=== PATIENT | female | born 1990 | race Caucasian/White ===

== ENCOUNTER 2019-06-10 08:14 | Emergency (ER) | payer SELFPAY ==
[2019-06-10 08:18] VITALS: BP 133/82; PULSE 94; RESP 16; TEMP 36.5; O2SAT 100; BMI 21.7
--- NOTE | 2019-06-10 08:26 | ED_ITS ---
HPI - Abdominal Pain General: Chief Complaint: Abdominal Pain Stated Complaint: Abd pain Time Seen by Provider: 06/10/19 08:18 Source: patient Mode of arrival: ambulatory Limitations: no limitations History of Present Illness: HPI narrative: Patient comes in today with complaints of midepigastric and right upper quadrant abdominal pain with nausea and diarrhea. Patient reports that she has had similar episodes over the past 6 months on and off. Patient denies any fever and no vomiting. Patient appears well. Patient appears in mild pain. MD elicited complaint: abdominal pain Severity: mild Exacerbating factors: eating Associated Symptoms: Reports diarrhea and nausea Review of Systems General: Reports: 10 or more systems reviewed and unremarkable except in HPI and below GI: Reports: abdominal pain, nausea and diarrhea PFSH ED PFSH: Statuses (acute, chronic, etc) shown below reflect problem list status as previously entered and may not be historically accurate Social History Smoking and tobacco status: current every day smoker Physical Exam Const: COMMON NORMALS: no apparent distress and oriented x3 GENERAL APPEARANCE: cooperative HENMT: COMMON NORMALS: normocephalic, external ears normal, EAC's normal, TM's normal bilaterally and external nose normal HEAD & SCALP: normal to inspection and normocephalic FACE & SINUS: normal facial exam NOSE: external nose normal GENERAL EAR: hearing not grossly impaired EXTERNAL EAR: Yes external ears normal EXTERNAL AUDITORY CANAL: EAC's normal TYMPANIC MEMBRANE: TM's normal bilaterally MOUTH: oral and palatal mucosa normal THROAT: posterior oropharynx normal Eye: COMMON NORMALS: PERRL and EOMs intact bilaterally PUPIL: Yes PERRL Neck/C-Spine: COMMON NORMALS: full ROM and no lymphadenopathy Lymph: LYMPHATIC: no lymphedema noted Chest: COMMONS NORMALS: inspection of chest normal and palpation of chest normal Resp: COMMON NORMALS: normal respiratory effort and clear to auscultation bilaterally AUSCULTATION: clear to auscultation bilaterally Cardio: COMMON NORMALS: regular rate and regular rhythm RATE: regular rate RHYTHM: regular rhythm GI: COMMON NORMALS: soft to palpation; negative for no hepatosplenomegaly PALPATION: Yes soft, Yes tender, No guarding, No rigid and No no hepatosplenomegaly : COMMON NORMALS: Yes no CVA tenderness BLADDER/KIDNEY EXAM: Yes no CVA tenderness Back/Pelvis: COMMON NORMALS: no CVA tenderness and thoracic and lumbar spine normal to inspection Extremity: COMMON NORMALS: normal to inspection GENERAL: No edema Neuro: COMMON NORMALS: oriented x3, moves all extremities and no focal motor deficits Psych: COMMON NORMALS: mental status grossly normal and cooperative Skin: COMMON NORMALS: no rashes or lesions noted GENERAL SKIN EXAM: no rashes or lesions noted Course Vital Signs: Vital signs: Vital Signs Temperature 97.7 F 06/10/19 08:18 Pulse Rate 94 06/10/19 08:18 Respiratory Rate 16 06/10/19 08:18 Blood Pressure 133/82 06/10/19 08:18 Pulse Oximetry 99 06/10/19 08:31 MDM - Abdominal Pain MDM Narrative: Medical decision making narrative: Patient comes in today with complaints of gastric discomfort on and off for the last 6 months. Patient reports last night pain got pretty severe and uncomfortable with some nausea. Patient exam notes tenderness to the epigastric and right upper quadrant. Abdomen is soft. No guarding or rebound tenderness is noted. No CVA tenderness. Skin is warm and dry color is pink. Respirations are even. Diff erential diagnosis includes gallbladder colic, pancreatitis, gastritis, gastro- esophageal reflux. Laboratory values noted no increase in liver enzymes. Review of the record did note some increase in liver enzymes in March. Ultrasound was ordered due to these elevated liver enzymes in March and it was noted patient had gallstones. Lipase was normal. CBC was normal. Urinalysis was normal. Feel the patient probably has gallbladder colic, recommend that she follow-up with surgeon for further evaluation and treatment with removal. Patient reports understanding agreed to plan and need for follow- up. Lab Data: Labs: Lab Results 06/10/19 06/10/19 06/10/19 Range/Units 08:28 08:28 08:28 WBC 8.1 (4.0-10.0) 10^3/ uL RBC 4.58 (4.1-5.3) 10^6/u L Hgb 12.9 (11.5-15.3) g/dL Hct 39.5 (37.0-47.0) % MCV 86.2 (81-99) fL MCH 28.2 (28.0-34.0) pg MCHC 32.7 (30.0-36.0) g/dL RDW 13.9 (12.1-15.1) % Plt Count 296 (130-400) 10^3/c mm MPV 10.3 (7.4-10.4) fL Neut % (Auto) 60.8 % Lymph % (Auto) 29.2 % Evangeline % (Auto) 6.5 % Eos % (Auto) 3.0 % Baso % (Auto) 0.4 % Neut # (Auto) 5.0 (1.8-7.7) 10^3/u L Lymph # (Auto) 2.4 (0.8-4.8) 10^3/u L Evangeline # (Auto) 0.5 (0.2-0.9) 10^3/u L Eos # (Auto) 0.2 (0.0-0.8) 10^3/u L Baso # (Auto) 0.0 (0.0-0.1) 10^3/u L Nucleated RBC % (a uto) 0 % Nucleated RBCs # 0.0 /100WBC Sodium 139 (136-145) mmol/L Potassium 4.0 (3.5-5.1) mmol/L Chloride 104 (98-107) mmol/L Carbon Dioxide 23 (22-29) mmol/L Anion Gap 16.0 (5-19) BUN 11 (6-20) mg/dL Creatinine 0.8 (0.5-0.9) mg/dL GFR Calculation 84.2 L (90-130) mL/min Glucose 101 (74-109) mg/dL Calcium 10.0 (8.5-10.5) mg/dL Total Bilirubin 0.4 (0.15-1.2) mg/dL AST 19 (0-32) U/L ALT 21 (0-33) U/L Alkaline Phosphata se 75 (35-105) IU/L Total Protein 8.1 (6.6-8.7) g/dL Albumin 5.1 (3.5-5.2) g/dL Globulin 3.0 (1.3-4.6) g/dL Lipase 42 (13-60) U/L HCG, Qual Negative (Negative) Urine Color (Yellow) Urine Appearance (CLEAR) Urine pH (5-7) Ur Specific Gravit y (1.005-1.030) Urine Protein (Negative) Urine Glucose (UA) (Normal) Urine Ketones (Negative) Urine Occult Blood (Negative) Urine Nitrate (Negative) Urine Bilirubin (NEGATIVE) Urine Urobilinogen (Negative) mg/dL Ur Leukocyte Sujata ase (Negative) Urine RBC (0-2) /hpf Urine WBC (0-5) /hpf Ur Squamous Epith Cells (0-5) Urine Bacteria (NONE) 06/10/19 Range/Units 08:39 WBC (4.0-10.0) 10^3/ uL RBC (4.1-5.3) 10^6/u L Hgb (11.5-15.3) g/dL Hct (37.0-47.0) % MCV (81-99) fL MCH (28.0-34.0) pg MCHC (30.0-36.0) g/dL RDW (12.1-15.1) % Plt Count (130-400) 10^3/c mm MPV (7.4-10.4) fL Neut % (Auto) % Lymph % (Auto) % Evangeline % (Auto) % Eos % (Auto) % Baso % (Auto) % Neut # (Auto) (1.8-7.7) 10^3/u L Lymph # (Auto) (0.8-4.8) 10^3/u L Evangeline # (Auto) (0.2-0.9) 10^3/u L Eos # (Auto) (0.0-0.8) 10^3/u L Baso # (Auto) (0.0-0.1) 10^3/u L Nucleated RBC % (a uto) % Nucleated RBCs # /100WBC Sodium (136-145) mmol/L Potassium (3.5-5.1) mmol/L Chloride (98-107) mmol/L Carbon Dioxide (22-29) mmol/L Anion Gap (5-19) BUN (6-20) mg/dL Creatinine (0.5-0.9) mg/dL GFR Calculation (90-130) mL/min Glucose (74-109) mg/dL Calcium (8.5-10.5) mg/dL Total Bilirubin (0.15-1.2) mg/dL AST (0-32) U/L ALT (0-33) U/L Alkaline Phosphata se (35-105) IU/L Total Protein (6.6-8.7) g/dL Albumin (3.5-5.2) g/dL Globulin (1.3-4.6) g/dL Lipase (13-60) U/L HCG, Qual (Negative) Urine Color Yellow (Yellow) Urine Appearance Clear (CLEAR) Urine pH 5.0 (5-7) Ur Specific Gravit y 1.025 (1.005-1.030) Urine Protein Neg (Negative) Urine Glucose (UA) Norm (Normal) Urine Ketones Negative (Negative) Urine Occult Blood Neg (Negative) Urine Nitrate Negative (Negative) Urine Bilirubin Neg (NEGATIVE) Urine Urobilinogen Norm (Negative) mg/dL Ur Leukocyte Sujata ase Negative (Negative) Urine RBC 5-10 H (0-2) /hpf Urine WBC 40-55 H (0-5) /hpf Ur Squamous Epith Cells 10-15 H (0-5) Urine Bacteria 1+ H (NONE) Discharge Plan Discharge Patient Disposition: Home, Self-Care Clinical Impression: Cholelithiasis Qualifiers: Cholelithiasis location: gallbladder Cholecystitis presence: without cholecystitis Biliary obstruction: without biliary obstruction Qualified Code(s): K80.20 - Calculus of gallbladder without cholecystitis without obstruction Condition: Stable Prescriptions: New ondansetron HCl 4 mg tablet 4 mg PO Q8H PRN (Reason: nausea and vomiting) Qty: 10 RF: 0 dicyclomine 20 mg tablet 20 mg PO TID PRN (Reason: gallbladder colic) Qty: 30 RF: 0 Discharge Orders: Discharge Order (Routine); Ordered 06/10/19 Ordered By: Yogesh Hancock Referrals: Brandie Galicia APN [Primary Care Provider] - Discharge Diet: Low Fat Discharge Activity: Resume usual activity Patient Instructions: Biliary Colic (ED) Activity Restrictions/Additional Instructions: Medications as directed Drink plenty of water Follow-up with primary care in one week Follow-up with surgeon for further evaluation and treatment Return to ER for high fever or uncontrolled pain Discharge Date/Time: 06/10/19 10:02 Coding Level of Care Code ED Pharmacy Tech Customer Service for Janki Pickens
[2019-06-10 08:31] VITALS: O2SAT 99
[2019-06-10 08:33] LABS: Basophils % 0.4 %; Eosinophils # 0.2 10^3/uL (0.0-0.8); Hematocrit 39.5 % (37.0-47.0); Hemoglobin 12.9 g/dL (11.5-15.3); Lymphocytes # 2.4 10^3/uL (0.8-4.8); Lymphocytes % 29.2 %; Mean Corpuscular HGB Conc 32.7 g/dL (30.0-36.0); Mean Corpuscular Hemoglobin 28.2 pg (28.0-34.0); Mean Corpuscular Volume 86.2 fL (81-99); Mean Platelet Volume 10.3 fL (7.4-10.4); Monocytes # 0.5 10^3/uL (0.2-0.9); Monocytes % 6.5 %; Neutrophils % 60.8 %; Nucleated Red Blood Cells % 0 %; Platelet Count 296 10^3/cmm (130-400); Red Blood Count 4.58 10^6/uL (4.1-5.3); Red Cell Distribution Width 13.9 % (12.1-15.1); White Blood Count 8.1 10^3/uL (4.0-10.0)
--- NOTE | 2019-06-10 08:41 | US_ITS ---
WS: [id number] RIGHT UPPER QUADRANT ULTRASOUND HISTORY: abd pain, elevated liver enzymes COMPARISON: None available. Liver: 14.0 cm in length. Normal size and echogenicity with no intrahepatic dilatation. No mass. Gallbladder: Well distended gallbladder with stones. No pericholecystic fluid or gallbladder wall thi ckening. Stone is in the gallbladder neck and does not move with positioning. CBD: 2.6 mm Pancreas: Normal size and echogenicity. Right kidney: 11.2 cm in length. Normal echogenicity with no mass or hydronephrosis. Aorta and IVC: Unremarkable. No ascites. US/US abdomen limited 07221 IMPRESSION: Cholelithiasis without acute cholecystitis.
[2019-06-10 08:49] LABS: Bilirubin Urine Neg (NEGATIVE); Blood Urine Neg (Negative); Glucose Urine UA Norm (Normal); Ketones Urine Negative (Negative); Leukocyte Esterase Urine Negative (Negative); Nitrate Urine Negative (Negative); Protein Urine Neg (Negative); Specific Gravity, Urine 1.025 (1.005-1.030); Urine Appearance Clear (CLEAR); Urine Color Yellow (Yellow); Urobilinogen Urine Norm (Negative)
[2019-06-10 08:49] LABS: HCG, Serum Qual Negative (Negative)
[2019-06-10 08:57] LABS: Alanine Aminotransferase 21 U/L (0-33); Albumin Level 5.1 g/dL (3.5-5.2); Alkaline Phosphatase 75 IU/L (35-105); Aspartate Amino Transferase 19 U/L (0-32); Blood Urea Nitrogen 11 mg/dL (6-20); Carbon Dioxide 23 mmol/L (22-29); Chloride 104 mmol/L (98-107); Glomerular Filtration Rate 84.2 mL/min (90-130); Glucose 101 mg/dL (74-109); Lipase 42 U/L (13-60); Sodium 139 mmol/L (136-145); Total Bilirubin 0.4 mg/dL (0.15-1.2); Total Protein 8.1 g/dL (6.6-8.7)
[2019-06-10 09:19] LABS: Add Urine Culture? Yes; Bacteria Urine 1+; WBC Urine 40-55 /hpf (0-5)
[2019-06-10 10:01] VITALS: BP 132/85; PULSE 89; RESP 16; O2SAT 99
--- NOTE | 2019-06-10 14:53 | DCPLANNER ---
manager of training had message to schedule a follow up appointment for patient with general surgery. manager of training called [facility], spoke with Yelitza, a follow up appointment is scheduled for Thursday, June 13, 2019 at 11:[address] Andrade. manager of training called patient and informed patient of the scheduled appointment, patient stated that she does not have insurance, case filler will mail patient both of the financial adviser applications to fill out and turn in.
--- NOTE | 2019-07-04 14:34 | DCPLANNER ---
Patient did attend appointment scheduled for 06.13.[address] Andrade at [facility].
== END 2019-06-10 10:02 | disposition home or self-care (01) ==
PROVIDERS: Emergency Provider Nurse Practitioner Family; Family Provider Nurse Practitioner Family; PCP Nurse Practitioner Family
DX: K80.20 Calculus of gallbladder without cholecystitis without obstruction (principal); F17.210 Nicotine dependence, cigarettes, uncomplicated
CPT/HCPCS: 36415; 76705; 80053; 81001; 83690; 84703; 85025; 87077; 87086; 87186; 99282

== ENCOUNTER 2019-06-16 08:14 | Day surgery (SDC) | payer SELFPAY ==
[2019-06-13 17:22] VITALS: BMI 21.7
[2019-06-16] VITALS (13 sets, daily range): BP systolic 98–129; BP diastolic 61–80; PULSE 54–112; RESP 15–24; TEMP 36.2–37.2; O2SAT 94–100
[2019-06-16 09:05] LABS: OR HCG Qualitative Urine Negative (Negative)
[2019-06-16] MEDS: sodium chloride 0.9% 1,000 ML 30 ML IV (09:08)
--- NOTE | 2019-06-16 09:34 | ANES.PREANE2 ---
Pre-Anesthetic Assessment Pre-Anesthetic Assessment: Height/Weight: Height 1.68 m Weight 61.235 kg Temp Pulse Resp BP Pulse Ox 98 F 71 18 121/64 100 06/16/19 08:40 06/16/19 08:40 06/16/19 08:40 06/16/19 08:40 06/16/19 08:40 Preop Diagnosis: Symptomatic cholelithiasis Proposed Procedure: Operation Date: 06/16/19 09:50 Proposed Procedures p [place] [address] K80.20(Not Applicable) - Ronny Andrade MD Last intake: Intake Last Liquid Date 06/15/19 Last Liquid Time 22:00 Last Solid Date 06/15/19 Last Solid Time 19:30 Social: Social History: Tobacco Packs per day: 1 Pack years: 14 Exam: Pre-Anes Outpt Exam: alert and oriented x 3 Airway: Submandibular: WNL Cervical ROM: WNL MP: 1 GI: Comments: cholelithiasis Anesthetic Plan: ASA status: II Anesthesia: General Meds/Allergies Current Medications: Current Medications Generic Name Dose Route Start Last Admin Trade Name Freq PRN Reason Stop Dose Admin Sodium Chloride 1,000 mls @ 30 ml s/hr 06/16/19 08:30 06/16/19 09:08 Sodium Chloride 0.9% IV 06/17/19 08:29 30 mls/hr .Q24H SURESH Administration PFSH Anesthesia PFSH: Social History Smoking and tobacco status: current every day smoker Alcohol intake: never Household members: spouse Marital status: Current occupational status: unemployed History of recent travel: No Data Anesthesia Other Labs: Laboratory Results - last 48 hr 06/16/19 08:58 Urine HCG, Qual Negative Cardiac Studies: No Data to Display
--- NOTE | 2019-06-16 11:33 | PM.HPUD ---
H&P update H&P Update: DATE OF SURGERY/PROCEDURE: 06/16/19 DATE H&P PERFORMED: 06/13/19 H&P UPDATE INFORMATION: H&P completed within last 30 days and No changes to prior documentation PLANNED PROCEDURE: Operation Date: 06/16/19 09:50 Proposed Procedures p Laparoscopic Cholecystectomy [place] Open 12902 K80.20(Not Applicable) - Ronny Andrade MD Full H&P Medications/Allergies: Current Medications: Current Medications Generic Name Dose Route Start Last Admin Trade Name Freq PRN Reason Stop Dose Admin Sodium Chloride 1,000 mls @ 30 ml s/hr 06/16/19 08:30 06/16/19 09:08 Sodium Chloride 0.9% IV 06/17/19 08:29 30 mls/hr .Q24H SURESH Administration Perinent History: Family History: Family History (Updated 06/13/19 @ 09:30 by Lee Ann Jones LPN) Unknown Cancer cervical cancer Other Diabetes Denies family history of Anesthesia complication Bleeding disorder Social History: Social History Smoking and tobacco status: current every day smoker Alcohol intake: never Household members: spouse Marital status: Current occupational status: unemployed History of recent travel: No
[2019-06-16] MEDS: meperidine 50 mg/mL INJ 12.5 MG IVP ×2 (12:37→12:43)
--- NOTE | 2019-06-16 12:41 | SUR.PHASEI ---
1235 PATIENT TO PACU VIA GURNEY. PATIENT NOTED TO BE SHIVERING. RR EVEN AND UNLABORED. 4 INCISIONS NOTED TO ABDOMEN, CDI. PATIENT RESPONDS TO VERBAL STIMULI. PLACED ON SIMPLE MASK AT 8L, SPO2 100%.
[2019-06-16] MEDS: fentaNYL 50 mcg/mL INJ 2mL IVP (12:46)
--- NOTE | 2019-06-16 13:08 | SUR.PHASEI ---
1304 patient to ops via gurney from pacu. no distress. pwd. 4 incisions to abdomen, cdi.
[2019-06-16] MEDS: HYDROcodone-acetaminophen 5-325 mg Tablet 1 TAB PO (14:29)
--- NOTE | 2019-06-16 16:43 | P.OP_ITS ---
Operative Report Date of procedure: June 16, 2019 Pre-op Diagnosis: Symptomatic cholelithiasis Post-op diagnosis: same Procedure Done: Laparoscopic cholecystectomy Pathology: Gallbladder Surgeon: Ronny Andrade Anesthesia: General Estimated blood loss (mL): 10 Condition: stable Disposition: PACU Procedure: The patient was taken to the operating room and was intubated under general anesthesia. After the antibiotic had been administered, the abdomen was prepped and draped in a sterile manner. Using a #15 blade, a 1 centimeter infraumbilical curvilinear incision was made and using an open Nory technique the peritoneal cavity was entered. A 10 millimeter port was placed and 15 millimeters of pneumoperitoneum was created. A 10 millimeter, 30 degrees scope was then introduced. Three 5 millimeter ports were placed in the epigastric, midclavicular and the anterior axillary line two fingerbreadths below the costal margin on the right side under the direct visualization. Ratcheted forceps were introduced into the lateral most port and was used to retract the fundus of the gallbladder cephalad and using forceps the infundibulum of the gallbladder was retracted laterally. Using L-hook cautery the peritoneum overlying the Calot's triangle was opened medially and laterally until the cystic duct and the cystic artery were skeletonized. Dissection was carried along the body of the gallbladder and after ensuring critical view of safety, 4 clips applied on the cystic duct and 3 clips applied on the cystic artery and cut leaving, 3 clips on the remaining portion of the duct and 2 clips on the remaining portion of the artery. The rest of the gallbladder was dissected off the liver using L-hook cautery. There was no bleeding or bile leaking noted from the gallbladder fossa and the clips appeared to be in place. An EndoCatch bag was introduced to remove the gallbladder. All the ports were removed under direct visualization and there was no bleeding noted from the port sites. The fascia of the umb ilicus was closed using [id number] 0 Vicryl sutures and the subcutaneous tissue was approximated using 3-0 Vicryl sutures. The skin at all four ports were closed using 4-0 Monocryl and Dermabond. A total of 10 millimeters of 0.5% Marcaine was infiltrated around the port sites. The patient was stable throughout the procedure.
== END 2019-06-16 14:40 | disposition home or self-care (01) ==
PROVIDERS: Anesthesiology; PCP Nurse Practitioner; Visit Provider Surgery
PROC: 0FT44ZZ Resection of Gallbladder, Percutaneous Endoscopic Approach (ICD-10-PCS; CPT 47562; principal; 2019-06-16 09:50)
DX: K80.10 Calculus of gallbladder with chronic cholecystitis without obstruction (principal); F17.210 Nicotine dependence, cigarettes, uncomplicated
CPT/HCPCS: 47562; 12345; 81025; 84703; 88304; 96365; J0690; J1100; J2001; J2175; J2250; J2405; J2704; J3010; J3490; J7030

== ENCOUNTER → 2020-05-28 12:01 | Outpatient (BNVA) | payer SELFPAY | PROVIDERS: PCP Family Medicine; Visit Provider Surgery | DX: R19.5 Other fecal abnormalities (principal) | CPT/HCPCS: 87635 ==

== ENCOUNTER → 2020-06-07 15:18 | Outpatient (BNVA) | payer SELFPAY | PROVIDERS: PCP Family Medicine; Visit Provider Surgery | DX: Z01.812 Encounter for preprocedural laboratory examination (principal); R19.5 Other fecal abnormalities | CPT/HCPCS: 87635 ==

== ENCOUNTER 2020-06-10 08:21 | Day surgery (SDC) | payer SELFPAY ==
[2020-06-08 13:49] VITALS: BMI 21.9
[2020-06-10 09:03] VITALS: BP 112/74; PULSE 67; RESP 16; TEMP 36.6; O2SAT 97
[2020-06-10] MEDS: sodium chloride 0.9% 1,000 ML 30 ML IV (09:19)
--- NOTE | 2020-06-10 09:37 | ANES.PREANE2 ---
Pre-Anesthetic Assessment Pre-Anesthetic Assessment: Height/Weight: Height 1.68 m Weight 61.689 kg Temp Pulse Resp BP Pulse Ox 97.9 F 67 16 112/74 97 06/10/20 09:03 06/10/20 09:03 06/10/20 09:03 06/10/20 09:03 06/10/20 09:03 Preop Diagnosis: diagnostic Proposed Procedure: Operation Date: 06/10/20 09:30 Proposed Procedures p Colonoscopy 53001 r19.5(Not Applicable) - Ronny Andrade MD Was Beta Gonzalo taken within 24 hours: N/A Last intake: Intake Last Liquid Date 06/09/20 Last Liquid Time 22:00 Last Solid Date 06/08/20 Last Solid Time 22:00 Social: Social History: Tobacco and No alcohol Exam: Pre-Anes Outpt Exam: alert, oriented x 3 and regular rate & rhythm Airway: Submandibular: WNL Cervical ROM: WNL MP: 2 Dentition: Chipped Additional comments: Poor dentition Pulmonary: Pulmonary: COPD GI: GI: GERD Anesthetic Plan: ASA status: 2 Anesthesia: MAC Risk of > 500 ml blood loss (7ml/kg in children): No Meds/Allergies Current Medications: Current Medications Generic Name Dose Route Start Last Admin Trade Name Freq PRN Reason Stop Dose Admin Sodium Chloride 1,000 mls @ 30 ml s/hr 06/10/20 09:00 06/10/20 09:19 Sodium Chloride 0.9% IV 06/11/20 08:59 30 mls/hr .Q24H SURESH Administration PFSH Anesthesia PFSH: Surgical History (Updated 05/22/20 @ 09:36 by Ronny Andrade MD) History of tubal ligation Hx of cholecystectomy Family History Unknown Cancer cervical cancer Other Diabetes Denies family history of Anesthesia complication Bleeding disorder Social History Smoking and tobacco status: current every day smoker Alcohol intake: never Household members: spouse Marital status: Current occupational status: unemployed History of recent travel: No Female Reproductive History: Date of last menstrual period: 05/28/20 Data Anesthesia Cardiac Studies: No Data to Display
--- NOTE | 2020-06-10 09:43 | W.PM.OPSUD ---
Surgery/Procedure H&P Update DATE OF PROCEDURE: June 10, 2020 DATE H&P PERFORMED: 05/21/20 H&P UPDATE INFORMATION: I have reviewed H&P completed within last 30 days, I have examined patient prior to procedure and No changes to prior documentation PREOP DIAGNOSIS: diagnostic PLANNED PROCEDURE: Operation Date: 06/10/20 09:30 Proposed Procedures p Colonoscopy 41550 r19.5(Not Applicable) - Ronny Andrade MD
[2020-06-10 10:21] VITALS: BP 87/42; PULSE 65; RESP 16; TEMP 36.4; O2SAT 100
[2020-06-10 10:36] VITALS: BP 102/51; PULSE 72; RESP 18; TEMP 36.5; O2SAT 99
--- NOTE | 2020-06-10 12:08 | ANE.PACU2 ---
Inpatient post-anesthesia follow up: Airway intact: Yes Vital signs: Temperature 97.7 F Pulse Rate 72 Respiratory Rate 18 Blood Pressure 102/51 Pulse Oximetry 99 Oxygen Delivery Me thod Room Air Oxygen Flow Rate 2 Fraction of Inspir ed Oxygen Hydration adequate: Yes Nausea and vomiting: No Pain level: 1 Mental status: Baseline
[2020-06-11 06:10] LABS: OR HCG Qualitative Urine Negative (Negative)
== END 2020-06-10 11:20 | disposition home or self-care (01) ==
PROVIDERS: Anesthesiology; PCP Family Medicine; Visit Provider Surgery
PROC: 0DJD8ZZ Inspection of Lower Intestinal Tract, Via Natural or Artificial Opening Endoscopic (ICD-10-PCS; CPT 45378; principal; 2020-06-10 09:30)
DX: R19.5 Other fecal abnormalities (principal); F17.210 Nicotine dependence, cigarettes, uncomplicated; Z80.0 Family history of malignant neoplasm of digestive organs; J44.9 Chronic obstructive pulmonary disease, unspecified; K21.9 Gastro-esophageal reflux disease without esophagitis
CPT/HCPCS: 12345; 45378; 84703; J2704; J7030

== ENCOUNTER 2020-10-14 20:58 | Emergency (ER) | payer SELFPAY ==
[2020-10-14 21:34] VITALS: BP 131/84; PULSE 97; RESP 15; TEMP 36.8; O2SAT 98; BMI 21.7
--- NOTE | 2020-10-14 22:07 | CTR_ITS ---
PROCEDURE INFORMATION: Exam: CT Cervical Spine Without Contrast Exam date and time: 10/14/2020 10:33 PM Age: 30 years old Clinical indication: Injury or trauma; Fall; Blunt trauma; Patient HX: Sustained whiplash injury jumping on trampoline. TECHNIQUE: Imaging protocol: Computed tomography images of the cervical spine without contrast. Radiation optimization: All CT scans at this facility use at least one of these dose optimization techniques: automated exposure control; mA and/or kV adjustment per patient size (includes targeted exams where dose is matched to clinical indication); or iterative reconstruction. COMPARISON: No relevant prior studies available. RADIATION DOSE METRICS: Total DLP (mGy-cm): 314.36 FINDINGS: Bones/joints: There are normal vertebral body heights. There is normal vertebral body alignment. The dens is intact. The lateral masses of C1 are symmetric. No fracture. Discs/Spinal canal/Neural foramina: Craniocervical articulation is normal. Atlantodental interval and prevertebral soft tissues are normal. Disc spaces are symmetric and maintained. Lungs: Lung apices are normal. Soft tissues: Unremarkable. CT/CT cervical spin wo con* [id number] IMPRESSION: No fracture. Radiation Dose CTDIVOL = (mGy): DLP = 314.36 (mGy-cm)
--- NOTE | 2020-10-14 22:48 | W.ED.NECK ---
HPI - Neck Pain/Injury General: Chief Complaint: Neck Pain/Injury Stated Complaint: Neck pain/injury, knot on back of neck Time Seen by Provider: 10/14/20 22:47 History of Present Illness: HPI Narrative: Patient is a 30-year-old female comes to the ED with neck pain. Patient says she was jumping on the trampoline with her kids and trying to do a front flip and she landed down on her trampoline on her upper back/neck. Patient says she felt like burning pain and a stretching feeling in her neck. Patient says she mainly felt pain in her neck and the pain shoots down into her shoulder blades. Denies any loss of consciousness, neurological symptoms. She just has soreness and pain in her neck and if she abducts her arms to shoulder like she feels a pull on her neck and it causes pain. Associated symptoms: Denies headache(s) or nausea Review of Systems Const: Denies: fever(s), chills or fatigue Eyes: Denies: change in vision or eye discomfort ENMT: Denies: throat pain, odynophagia, nasal discharge or nasal congestion Card: Denies: chest pain, palpitations, edema, swelling of feet/ankles, dyspnea on exertion or orthopnea Resp: Denies: dyspnea, productive cough or non-productive cough GI: Denies: abdominal pain, nausea, vomiting, diarrhea, constipation or hematochezia : Denies: flank pain, dysuria or hematuria Musc: Reports: neck pain; Denies: back pain or extremity swelling Skin/Breast: Denies: rash or new lesions Neuro: Denies: headache(s), numbness in extremities or weakness in extremities PFS ED PFSH: Surgical History History of tubal ligation Hx of cholecystectomy Status post colonoscopy (06/10/20) repeat in 5 Family History Unknown Cancer cervical cancer Other Diabetes Denies family history of Anesthesia complication Bleeding disorder Social History Smoking and tobacco status: current every day smoker Alcohol intake: never Household members: spouse Marital status: Current occupational status: unemployed History of recent travel: No Female Reproductive History: Date of last menstrual period: 05/28/20 Physical Exam Const: COMMON NORMALS: no acute distress, patient oriented x3 and alert GENERAL APPEARANCE: cooperative and comfortable HENMT: COMMON NORMALS: normocephalic HEAD & SCALP: normocephalic MOUTH: Normal oral and palatal mucosa present THROAT: posterior oropharynx normal and uvula midline Neck/C-Spine: COMMON NORMALS: supple GENERAL: Yes normal visual inspection CERVICAL SPINE: Yes pain with cervical ROM, Yes Cervical spine tenderness C5, C6 and C7, Yes Paracervical muscle tenderness bilateral and Yes collar present Resp: COMMON NORMALS: normal respiratory effort, No retractions, No use of accessory muscles and clear to auscultation bilaterally AUSCULTATION: clear to auscultation bilaterally Cardio: COMMON NORMALS: regular rate, regular rhythm, S1 normal heart sound present, S2 normal heart sound present, No gallops present (Cardio), No clicks present (Cardio), No murmurs present (Cardio) and Peripheral pulses 2+ throughout RATE: regular rate RHYTHM: regular rhythm HEART SOUNDS: S1 normal heart sound present and S2 normal heart sound present PERIPHERAL PULSES: Peripheral pulses 2+ throughout GI: COMMON NORMALS: Normal to inspection, nondistended, normoactive bowel sounds present, Soft to palpation, non-tender and no masses PALPATION: Yes Soft to palpation : COMMON NORMALS: Yes no CVA tenderness BLADDER/KIDNEY EXAM: Yes no CVA tenderness Back/Pelvis: COMMON NORMALS: no CVA tenderness Extremity: COMMON NORMALS: normal to inspection Neuro: COMMON NORMALS: patient oriented x3 and moves all extremities SENSORIUM/ORIENTATION: Yes alert Skin: GENERAL SKIN EXAM: dry skin Course Vital Signs: Vital signs: Vital Signs Temperature 98.2 F 10/14/20 21:34 Pulse Rate 97 10/14/20 21:34 Respiratory Rate 15 10/14/20 21:34 Blood Pressure 131/84 10/14/20 21:34 Pulse Oximetry 98 10/14/20 21:34 MDM - Neck Pain/Injury MDM Narrative: Medical decision making narrative: Patient is a 30-year-old female comes to the ED with neck pain after an injury. Patient was wearing a c-collar upon exam and had some tenderness over the C6 and C7 area of C-spine. She also had some paracervical muscle tenderness bilaterally. Neurovascular intact. CT of cervical spine showed no acute fractures or findings. Patient was given a dose of Toradol and Norflex while here in the ED. She was diagnosed with cervical muscle strain and discharged home with a prescription for ibuprofen 800 mg tablets and cyclobenzaprine. Rest, limit lifting and apply cold pack on neck to help with symptoms. She was told to follow-up with her PCP in 7 to 10 days for reevaluation. Return to ED precautions given. Patient understood agree with plan. Imaging Data^: Other CT: Attestation: I personally reviewed and interpreted this imaging study as follows: Radiologist's impression: [employer] [place] [address] CT Scan Report Signed Patient: Anna Rodriguez Unit #: [id number] : 1990 Age/Sex: 30 / F ADM Date: 10/14/20 Loc: ER Room/Bed: Attending Dr: Ordering Provider/Ordering MD: Anita Fields MD Date of Service: 10/14/20 Procedure(s): CT cervical spin wo con* [id number] Accession Number(s): [id number] Report Number: [id number] PROCEDURE INFORMATION: Exam: CT Cervical Spine Without Contrast Exam date and time: 10/14/2020 10:33 PM Age: 30 years old Clinical indication: Injury or trauma; Fall; Blunt trauma; Patient HX: Sustained whiplash injury jumping on trampoline. TECHNIQUE: Imaging protocol: Computed tomography images of the cervical spine without contrast. Radiation optimization: All CT scans at this facility use at least one of these dose optimization techniques: automated exposure control; mA and/or kV adjustment per patient size (includes targeted exams where dose is matched to clinical indication); or iterative reconstruction. COMPARISON: No relevant prior studies available. RADIATION DOSE METRICS: Total DLP (mGy-cm): 314.36 FINDINGS: Bones/joints: There are normal vertebral body heights. There is normal vertebral body alignment. The dens is intact. The lateral masses of C1 are symmetric. No fracture. Discs/Spinal canal/Neural foramina: Craniocervical articulation is normal. Atlantodental interval and prevertebral soft tissues are normal. Disc spaces are symmetric and maintained. Lungs: Lung apices are normal. Soft tissues: Unremarkable. CT/CT cervical spin wo con* [id number] IMPRESSION: No fracture. Radiation Dose CTDIVOL = (mGy): DLP = 314.36 (mGy-cm) Dictated By: Raymond Read Signed By: Raymond Read Signed Date/Time: 10/14/202318 DD/ 17 Discharge Plan Discharge Patient Disposition: Home Clinical Impression: Cervical muscle strain Qualifiers: Encounter type: initial encounter Qualified Code(s): S16.1XXA - Strain of muscle, fascia and tendon at neck level, initial encounter Condition: Stable Prescriptions: New ibuprofen 800 mg tablet 800 mg PO Q8H PRN (Reason: pain) Qty: 20 RF: 0 cyclobenzaprine 10 mg tablet 10 mg PO BID PRN (Reason: muscle spasm) Qty: 20 RF: 0 No Action ferrous sulfate [FeroSul] 325 mg (65 mg iron) tablet 325 mg PO QDAY RF: 0 hydroxyzine HCl 25 mg tablet 25 mg PO TID PRN (Reason: Anxiety) RF: 0 lactulose 10 gram/15 mL (15 mL) solution 10 g PO BID 7 Days Qty: 210 RF: 0 pantoprazole [Protonix] 40 mg Tablet,Delayed Release (Dr/Ec) 40 mg PO DAILY RF: 0 buspirone 7.5 mg Tablet 7.5 mg PO BID RF: 0 amoxicillin 500 mg Tablet 500 mg PO TID RF: 0 Discharge Orders: Discharge ED (Routine); Ordered 10/14/20 Ordered By: Maciel Orosco Referrals: Mike Meek MD [Primary Care Provider] - Discharge Diet: Regular Discharge Activity: Limit activity as instructed Patient Instructions: Cervical Sprain (ED), Cervical Strain Activity Restrictions/Additional Instructions: Follow-up with medical provider as directed in 7 to 10 days for reevaluation. Limit lifting and apply cold pack on neck to help with symptoms. Take medications as prescribed. Return to the ER or your medical provider if condition worsens. Please read and understand discharge instructions. Thank you for choosing [facility] for your healthcare needs today. Please realize this is an emergency room and that we are providing you with a medical screening exam and this may not be complete and all inclusive of all the testing and or work up that you may need to determine your ailment or severity of your illness. It is very important that you follow up as instructed or that you return to the Emergency Department should you have concerns or if your condition changes or worsens in any way. Stand Alone Forms: Work/School Release Coding Level of Care Code ED Employment Consultant for [employer] Fwd Exam Comprehensive
[2020-10-14] MEDS: ketorolac 60 mg/2 mL INJ IM (23:31)
[2020-10-14] MEDS: orphenadrine 30 mg/mL Inj 2 mL 60 MG IM (23:31)
== END 2020-10-14 23:46 | disposition home or self-care (01) ==
PROVIDERS: Emergency Provider Physician Assistant; PCP Family Medicine
DX: S16.1XXA Strain of muscle, fascia and tendon at neck level, initial encounter (principal); F17.210 Nicotine dependence, cigarettes, uncomplicated; X50.9XXA Other and unspecified overexertion or strenuous movements or postures, initial encounter; Y93.44 Activity, trampolining
CPT/HCPCS: 72125; 96372; 99283; J1885; J2360

== ENCOUNTER 2021-09-17 17:51 | Emergency (ER) | payer SELFPAY ==
[2021-09-17 17:52] VITALS: BP 152/80; PULSE 98; RESP 14; TEMP 36.7; O2SAT 98
--- NOTE | 2021-09-17 18:01 | W.ED.DENTAL ---
HPI - Dental/Oral General: Chief complaint: Dental/Oral Stated complaint: Swelling in face Time Seen by Provider: 09/17/21 17:59 History of Present Illness: 31-year-old female comes in today for complaints of abscess to the right upper premolar. Patient reports recurrent infection to the tooth. Patient is waiting to get into the dentist for definitive care. Patient is needing antibiotic. Associated symptoms: Denies fever(s) Review of Systems General: Reports: 10 or more systems reviewed and unremarkable except in HPI and below Const: Denies: fever(s) ENMT: Reports: dental pain Card: Denies: chest pain Resp: Denies: dyspnea GI: Denies: nausea or vomiting Musc: Denies: neck pain PFSH ED PFSH: Surgical History History of tubal ligation Hx of cholecystectomy Status post colonoscopy (06/10/20) repeat in 5 Family History Unknown Cancer cervical cancer Other Diabetes Denies family history of Anesthesia complication Bleeding disorder Social History Smoking and tobacco status: current every day smoker Alcohol intake: never Household members: spouse Marital status: Current occupational status: unemployed History of recent travel: No Female Reproductive History: Date of last menstrual period: 09/05/21 Physical Exam Const: COMMON NORMALS: alert HENMT: MOUTH: Abnormal oral and palatal mucosa present (Pustule noted above the first premolar on the right upper jaw) TEETH & GINGIVA: Yes poor dentition Eye: GENERAL EYE: appearance normal, both eyes and all related structures Neck/C-Spine: COMMON NORMALS: full ROM Resp: COMMON NORMALS: normal respiratory effort and clear to auscultation bilaterally AUSCULTATION: clear to auscultation bilaterally Cardio: COMMON NORMALS: regular rate RATE: regular rate GI: COMMON NORMALS: non-tender : COMMON NORMALS: Yes no CVA tenderness BLADDER/KIDNEY EXAM: Yes no CVA tenderness Back/Pelvis: COMMON NORMALS: no CVA tenderness Extremity: COMMON NORMALS: full ROM Neuro: SENSORIUM/ORIENTATION: Yes alert Skin: COMMON NORMALS: no rashes or lesions noted GENERAL SKIN EXAM: no rashes or lesions noted Course Vital Signs: Vital signs: Vital Signs Temperature 98.0 F 05/07/22 17:52 Pulse Rate 98 09/17/21 17:52 Respiratory Rate 14 09/17/21 17:52 Blood Pressure 152/80 09/17/21 17:52 Pulse Oximetry 98 09/17/21 17:52 [facility] - Dental/Oral Medical Decision Making Patient comes in today with complaints of dental pain to the right upper premolar. There is a noted pustule just above the tooth. Tooth is broken off at the gumline. Patient has poor dentition. Vital signs are normal except for some elevation of blood pressure. Differential diagnosis includes but not limited to dental abscess, dental caries, dental pain. No signs of serious illnesses noted. Patient will be started on Augmentin 1 tablet twice a day for 7 days with 1 refill. Patient was recommended to follow-up with dentist for definitive care. Discharge Plan Discharge Patient Disposition: Home Clinical Impression: Dental abscess Condition: Stable Prescriptions: New amoxicillin-pot clavulanate 875-125 mg tablet 1 tab PO BID Qty: 14 1RF Discontinued amoxicillin 500 mg Tablet 500 mg PO TID 0RF No Action ferrous sulfate [FeroSul] 325 mg (65 mg iron) tablet 325 mg PO QDAY 0RF hydroxyzine HCl 25 mg tablet 25 mg PO TID PRN (Reason: Anxiety) 0RF lactulose 10 gram/15 mL (15 mL) solution 10 g PO BID 7 Days Qty: 210 0RF pantoprazole [Protonix] 40 mg Tablet,Delayed Release (Dr/Ec) 40 mg PO DAILY 0RF buspirone 7.5 mg Tablet 7.5 mg PO BID 0RF ibuprofen 800 mg tablet 800 mg PO Q8H PRN (Reason: pain) Qty: 20 0RF cyclobenzaprine 10 mg tablet 10 mg PO BID PRN (Reason: muscle spasm) Qty: 20 0RF Discharge Orders: Discharge ED (Routine); Ordered 09/17/21 Ordered By: Yogesh Hancock Referrals: Mike Meek MD [Primary Care Provider] - Discharge Diet: Usual diet Discharge Activity: Increase activity as tolerated Patient Instructions: Dental Abscess (ED) Activity Restrictions/Additional Instructions: Home and rest. Acetaminophen and ibuprofen for pain. Take antibiotic 1 tablet twice a day for 7 days. Follow-up with dentist for definitive care. Return to ER for new concerns. 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
[2021-09-17] MEDS: amoxicillin-clav 875-125 mg Tablet 1 TAB PO (18:25)
== END 2021-09-17 18:24 | disposition home or self-care (01) ==
PROVIDERS: Emergency Provider Nurse Practitioner Family; PCP Family Medicine
DX: K04.7 Periapical abscess without sinus (principal); F17.200 Nicotine dependence, unspecified, uncomplicated
CPT/HCPCS: 99283

== ENCOUNTER 2022-06-12 04:53 | Emergency (ER) | payer SELFPAY ==
[2022-06-12 05:01] VITALS: BP 149/89; PULSE 66; RESP 26; TEMP 36.6; O2SAT 100; BMI 21.7
--- NOTE | 2022-06-12 05:06 | W.ED.ABDPA2 ---
HPI - Abdominal Pain General: Chief Complaint: Abdominal Pain Stated Complaint: ABD Pain Time Seen by Provider: 06/12/22 05:02 Source: patient History of Present Illness: 82-year-old female with sudden onset of left lower quadrant pain that is quite severe this started around 3 AM. She is vomited a couple times. No diarrhea. No fever. No history of pain like this in the past. She has had ovarian cyst in the past, but says this is a different pain. MD elicited complaint: abdominal pain Pertinent past history: none Onset (ago): hour(s) (2) Pain Consistency: constant Location: LLQ Severity: severe Quality: stabbing Radiation: L flank Exacerbating factors: vomiting and movement Relieving factors: nothing Associated Symptoms: Reports nausea and vomiting; Denies diarrhea, fever(s), loose stools and melena Related Data: Date of Last Menstrual Period: 09/05/21 Review of Systems Const: Denies: fever(s) ENMT: Denies: throat pain Card: Denies: chest pain Resp: Denies: dyspnea GI: Reports: abdominal pain, nausea and vomiting; Denies: diarrhea or melena : Reports: flank pain; Denies: difficulty voiding Skin/Breast: Denies: rash PFSH ED PFSH: Surgical History History of tubal ligation Hx of cholecystectomy Status post colonoscopy (06/10/20) repeat in 5 Family History Unknown Cancer cervical cancer Other Diabetes Denies family history of Anesthesia complication Bleeding disorder Social History Smoking and tobacco status: current every day smoker Alcohol intake: never Household members: spouse Marital status: Current occupational status: unemployed History of recent travel: No Female Reproductive History: Date of last menstrual period: 09/05/21 Physical Exam Const: GENERAL APPEARANCE: cooperative and in distress (in pain); not frail appearing NUTRITIONAL APPEARANCE: thin HENMT: COMMON NORMALS: normocephalic, atraumatic and Normal external nose present HEAD & SCALP: normocephalic and atraumatic FACE & SINUS: normal facial exam and face symmetric NOSE: Normal external nose present Eye: COMMON NORMALS: Equal, round and reactive pupils present and EOMs intact bilaterally PUPIL: Yes Equal, round and reactive pupils present Neck/C-Spine: GENERAL: Yes trachea midline Chest: CHEST: Yes Symmetrical chest wall rise Resp: COMMON NORMALS: No retractions, No use of accessory muscles and clear to auscultation bilaterally EFFORT & INSPECTION: Yes tachypneic AUSCULTATION: clear to auscultation bilaterally Cardio: COMMON NORMALS: regular rate and regular rhythm RATE: regular rate RHYTHM: regular rhythm GI: COMMON NORMALS: Normal to inspection, nondistended, normoactive bowel sounds present PALPATION: Yes Tenderness to palpation present (GI) Details: LLQ : BLADDER/KIDNEY EXAM: Yes CVA tenderness on the left Back/Pelvis: GENERAL BACK: Yes CVA tenderness Extremity: COMMON NORMALS: no pedal edema Neuro: SADE COMA SCALE: document GCS findings [place] coma scale eye opening: Spontaneous Sade coma scale verbal response: Orientated Sade coma scale motor response: Obey commands Sade coma scale total score: 15 SENSORY EXAM: Yes extremities (intact) Psych: COMMON NORMALS: speech normal SPEECH: Yes normal speech Skin: COMMON NORMALS: no rashes or lesions noted GENERAL SKIN EXAM: no rashes or lesions noted Course Vital Signs: Vital signs: Vital Signs Temperature 97.9 F 06/12/22 05:01 Pulse Rate 56 L 06/12/22 05:49 Respiratory Rate 20 H 06/12/22 05:49 Blood Pressure 147/85 06/12/22 05:49 Pulse Oximetry 100 06/12/22 05:49 Oxygen Delivery Me thod 06/12/22 05:49 MDM - Abdominal Pain Medical Decision Making 32-year-old female with left lower quadrant and left flank pain. Potassium is mildly low at 3.1. CBC is normal. She has a 3 millimeters distal ureter stone on urinalysis without infection. Pain is controlled at this point. Pain medication, antiemetic, and Flomax for home. Hopefully she can pass it on her own. She knows to return if she has uncontrollable symptoms. Lab Data 06/12/22 05:03 06/12/22 05:03 Labs/Radiology: Radiology Impressions Abdomen/Pelvis CT 06/12/22 05:15 IMPRESSION: Left renal obstructive uropathy secondary to distal ureterolithiasis. Laboratory Results WBC 8.0 10^3/uL (4.0-10.0) 06/12/22 05:03 RBC 4.73 10^6/uL (4.1-5.3) 06/12/22 05:03 Hgb 13.3 g/dL (11.5-15.3) 06/12/22 05:03 Hct 40.8 % (37.0-47.0) 06/12/22 05:03 MCV 86.3 fl (81-99) 06/12/22 05:03 MCH 28.1 pg (28.0-34.0) 06/12/22 05:03 MCHC 32.6 g/dL (30.0-36.0) 06/12/22 05:03 RDW 13.7 % (12.1-15.1) 06/12/22 05:03 Plt Count 289 10^3/cmm (130-400) 06/12/22 05:03 MPV 10.3 fL (7.4-10.4) 06/12/22 05:03 Neut % (Auto) 45.4 % 06/12/22 05:03 Lymph % (Auto) 42.4 % 06/12/22 05:03 [place] % (Auto) 5.5 % 06/12/22 05:03 Eos % (Auto) 5.8 % 06/12/22 05:03 Baso % (Auto) 0.6 % 06/12/22 05:03 Neut # (Auto) 3.63 10^3/uL (1.8-7.7) 06/12/22 05:03 Lymph # (Auto) 3.4 10^3/uL (0.8-4.8) 06/12/22 05:03 [place] # (Auto) 0.4 10^3/uL (0.2-0.9) 06/12/22 05:03 Eos # (Auto) 0.5 10^3/uL (0.0-0.8) 06/12/22 05:03 Baso # (Auto) 0.1 10^3/uL (0.0-0.1) 06/12/22 05:03 Nucleated RBC % (auto) 0 % 06/12/22 05:03 Nucleated RBCs # 0.0 /100WBC 06/12/22 05:03 Sodium 137 mmol/L (136-145) 06/12/22 05:03 Potassium 3.1 mmol/L (3.5-5.1) L 06/12/22 05:03 Chloride 101 mmol/L (98-107) 06/12/22 05:03 Carbon Dioxide 20 mmol/L (22-29) L 06/12/22 05:03 Anion Gap 19.1 (5-19) H 06/12/22 05:03 BUN 14 mg/dL (6-20) 06/12/22 05:03 Creatinine 0.9 mg/dL (0.5-0.9) 06/12/22 05:03 GFR Calculation 72.1 mL/min (90-130) L 06/12/22 05:03 Glucose 149 mg/dL (65-115) H 06/12/22 05:03 Calculated Osmolality 287 mOsm/kg (285-295) 06/12/22 05:03 Calcium 9.3 mg/dL (8.5-10.5) 06/12/22 05:03 Total Bilirubin 0.4 mg/dL (0.15-1.2) 06/12/22 05:03 AST 18 U/L (0-32) 06/12/22 05:03 ALT 14 U/L (0-33) 06/12/22 05:03 Alkaline Phosphatase 57 U/L (35-105) 06/12/22 05:03 C-Reactive Protein 3.0 mg/L (0.0-4.9) 06/12/22 05:03 Total Protein 7.6 g/dL (6.6-8.7) 06/12/22 05:03 Albumin 4.9 g/dL (3.5-5.2) 06/12/22 05:03 Globulin 2.7 g/dL (1.3-4.6) 06/12/22 05:03 Lipase 32 U/L (13-60) 06/12/22 05:03 HCG, Qual Negative (Negative) 06/12/22 05:03 Urine Color Yellow (Yellow) 06/12/22 05:03 Urine Appearance Clear (CLEAR) 06/12/22 05:03 Urine pH 5 (5-7) 06/12/22 05:03 Ur Specific [place] 1.030 (1.005-1.030) 06/12/22 05:03 Urine Protein Trace (Negative) 06/12/22 05:03 Urine Glucose (UA) Norm (Normal) 06/12/22 05:03 Urine Ketones Negative (Negative) 06/12/22 05:03 Urine Blood 3+ (Negative) H 06/12/22 05:03 Urine Nitrate Negative (Negative) 06/12/22 05:03 Urine Bilirubin Neg (Negative) 06/12/22 05:03 Urine Urobilinogen Neg mg/dL (Negative) 06/12/22 05:03 Ur Leukocyte Esterase Negative (Negative) 06/12/22 05:03 Urine RBC 15-25 /hpf (0-2) H 06/12/22 05:03 Urine WBC 0-4 /hpf (0-5) H 06/12/22 05:03 Ur Squamous Epith Cells 5-10 /hpf (0-5) H 06/12/22 05:03 Amorphous Sediment Not Reportable 06/12/22 05:03 Urine Bacteria 1+ /hpf (NONE) H 06/12/22 05:03 Urine Mucus Trace /hpf 06/12/22 05:03 Discharge Plan Discharge Patient Disposition: Home Clinical Impression: Ureterolithiasis Condition: Stable Prescriptions: New Percocet 7.5-325 mg tablet 1 tab PO Q6H PRN (Reason: pain) Qty: 10 0RF ondansetron 4 mg film 4 mg PO DAILY PRN (Reason: nausea and vomiting) Qty: 10 0RF Flomax 0.4 mg capsule 0.4 mg PO DAILY Qty: 7 0RF No Action ferrous sulfate [FeroSul] 325 mg (65 mg iron) tablet 325 mg PO QDAY hydroxyzine HCl 25 mg tablet 25 mg PO TID PRN (Reason: Anxiety) lactulose 10 gram/15 mL (15 mL) solution 10 g PO BID 7 Days Qty: 210 0RF pantoprazole [Protonix] 40 mg Tablet,Delayed Release (Dr/Ec) 40 mg PO DAILY buspirone 7.5 mg Tablet 7.5 mg PO BID ibuprofen 800 mg tablet 800 mg PO Q8H PRN (Reason: pain) Qty: 20 0RF cyclobenzaprine 10 mg tablet 10 mg PO BID PRN (Reason: muscle spasm) Qty: 20 0RF amoxicillin-pot clavulanate 875-125 mg tablet 1 tab PO BID Qty: 14 1RF Discharge Orders: Discharge ED (Routine); Ordered 06/12/22 Ordered By: Dat Montalvo Referrals: Mike Meek MD [Primary Care Provider] - Rusty Buchanan MD [Physician] - 1-3 days Patient Instructions: Kidney Stones (ED), Opioid Safety, Pain Management Activity Restrictions/Additional Instructions: Return for fever greater than 100, worsening pain despite treatment, vomiting liquids or medications, other concerning symptoms. Coding Level of Care Code ED Pens And Pencils Dipper for Chg Fwd Exam Comprehensive
[2022-06-12 05:14] LABS: Basophils # 0.1 10^3/uL (0.0-0.1); Basophils % 0.6 %; Eosinophils # 0.5 10^3/uL (0.0-0.8); Eosinophils % 5.8 %; Hematocrit 40.8 % (37.0-47.0); Hemoglobin 13.3 g/dL (11.5-15.3); Lymphocytes # 3.4 10^3/uL (0.8-4.8); Lymphocytes % 42.4 %; Mean Corpuscular HGB Conc 32.6 g/dL (30.0-36.0); Mean Corpuscular Hemoglobin 28.1 pg (28.0-34.0); Mean Corpuscular Volume 86.3 fl (81-99); Mean Platelet Volume 10.3 fL (7.4-10.4); Monocytes # 0.4 10^3/uL (0.2-0.9); Monocytes % 5.5 %; Neutrophils # 3.63 10^3/uL (1.8-7.7); Neutrophils % 45.4 %; Nucleated Red Blood Cells % 0 %; Platelet Count 289 10^3/cmm (130-400); Red Blood Count 4.73 10^6/uL (4.1-5.3); Red Cell Distribution Width 13.7 % (12.1-15.1)
--- NOTE | 2022-06-12 05:15 | CTR_ITS ---
PROCEDURE INFORMATION: Exam: CT Abdomen And Pelvis Without Contrast Exam date and time: 06/12/2022 5:30 AM Age: 32 years old Clinical indication: Abdominal pain; Flank; Left lower quadrant (llq); Additional info: Llq and L flank pain TECHNIQUE: Imaging protocol: Computed tomography of the abdomen and pelvis without contrast. Radiation optimization: All CT scans at this facility use at least one of these dose optimization techniques: automated exposure control; mA and/or kV adjustment per patient size (includes targeted exams where dose is matched to clinical indication); or iterative reconstruction. Other protocol: This patient has received 0 known CTs and 0 known cardiac nuclear medicine studies in the 12 months prior to the current study. COMPARISON: US abdomen limited [id number] 06/10/2019 9:05 AM RADIATION DOSE METRICS: Total DLP (mGy-cm): 372.47 FINDINGS: Liver: Normal. No mass. Gallbladder and bile ducts: Cholecystectomy. Negative for biliary dilation. Pancreas: Normal. No ductal dilation. Spleen: Normal. No splenomegaly. Adrenal glands: Normal. No mass. Kidneys and ureters: Left renal hydroureteronephrosis. Left distal ureter stone measures 3 mm diameter on coronal image 17 also visible on axial series 3, image 69. Cluster of nonobstructing left renal lower pole stones noted as well. Stomach and bowel: Unremarkable. No obstruction. No mucosal thickening. Appendix: No evidence of appendicitis. Intraperitoneal space: Unremarkable. No free air. No significant fluid collection. Vasculature: Unremarkable. No abdominal aortic aneurysm. Lymph nodes: Unremarkable. No enlarged lymph nodes. Urinary bladder: Unremarkable as visualized. Reproductive: Unremarkable as visualized. Bones/joints: Unremarkable. No acute fracture. Soft tissues: Unremarkable. CT/CT kidney stone [id number] IMPRESSION: Left renal obstructive uropathy secondary to distal ureterolithiasis.
[2022-06-12 05:20] VITALS: RESP 22
[2022-06-12] MEDS: ondansetron 2 mg/ML SDV 2 mL 4 MG IVP (05:20)
[2022-06-12] MEDS: sodium chloride 0.9% 1,000 ML 999 ML IV (05:20)
[2022-06-12] MEDS: HYDROmorphone 1 mg/mL INJ 1 mL IVP (05:20)
[2022-06-12 05:26] LABS: HCG, Serum Qual Negative (Negative)
[2022-06-12 05:30] LABS: Alanine Aminotransferase 14 U/L (0-33); Albumin Level 4.9 g/dL (3.5-5.2); Alkaline Phosphatase 57 U/L (35-105); Anion Gap 19.1 (5-19); Aspartate Amino Transferase 18 U/L (0-32); Blood Urea Nitrogen 14 mg/dL (6-20); Calcium 9.3 mg/dL (8.5-10.5); Carbon Dioxide 20 mmol/L (22-29); Chloride 101 mmol/L (98-107); Globulin 2.7 g/dL (1.3-4.6); Glomerular Filtration Rate 72.1 mL/min (90-130); Glucose 149 mg/dL (65-115); Lipase 32 U/L (13-60); Osmolality Calculated 287 mOsm/kg (285-295); Potassium 3.1 mmol/L (3.5-5.1); Sodium 137 mmol/L (136-145); Total Bilirubin 0.4 mg/dL (0.15-1.2); Total Protein 7.6 g/dL (6.6-8.7)
[2022-06-12 05:42] LABS: Add Urine Microscopic? YES; Bilirubin Urine Neg (Negative); Blood Urine 3+ (Negative); Glucose Urine UA Norm (Normal); Ketones Urine Negative (Negative); Leukocyte Esterase Urine Negative (Negative); Nitrate Urine Negative (Negative); Protein Urine Trace (Negative); Urine Appearance Clear (CLEAR); Urine Color Yellow (Yellow); Urobilinogen Urine Neg (Negative); pH Urine 5 (5-7)
[2022-06-12 05:44] LABS: RBC Urine 15-25 /hpf (0-2); WBC Urine 0-4 /hpf (0-5)
[2022-06-12 05:45] LABS: Add Urine Culture? Yes; Bacteria Urine 1+ /hpf; Mucus Urine TRACE /hpf
[2022-06-12 05:49] VITALS: BP 147/85; PULSE 56; RESP 20; O2SAT 100
[2022-06-12] MEDS: ketorolac 30 mg/mL INJ 15 MG IVP (06:25)
[2022-06-12 06:26] VITALS: RESP 16
[2022-06-12] MEDS: HYDROmorphone 1 mg/mL INJ 1 mL 0.5 MG IVP (06:26)
[2022-06-12 06:31] VITALS: BP 125/72; PULSE 59; RESP 16; O2SAT 100
== END 2022-06-12 06:46 | disposition home or self-care (01) ==
PROVIDERS: Emergency Provider Emergency Medicine; PCP Family Medicine
DX: N13.8 Other obstructive and reflux uropathy (principal); N20.1 Calculus of ureter; F17.210 Nicotine dependence, cigarettes, uncomplicated
CPT/HCPCS: 74176; 80053; 81001; 83690; 84703; 85025; 86140; 87077; 87086; 87186; 96361; 96374; 96375; 96376; 99285; J1170; J1885; J2405; J7030

== ENCOUNTER 2022-06-14 16:54 | Emergency (ER) | payer SELFPAY ==
[2022-06-14 16:58] VITALS: BP 129/80; PULSE 139; RESP 18; TEMP 37; O2SAT 99
--- NOTE | 2022-06-14 17:28 | ED_ITS ---
Documented by User: MELIDA Tatum 06/14/22 21:53 HPI - Back Pain/Injury General: Chief Complaint: Abdominal Pain Stated Complaint: urinary pain/fever/chills Time Seen by Provider: 06/14/22 17:12 Source: patient Mode of arrival: ambulatory Limitations: no limitations History of Present Illness: Patient is a nice 32-year-old female who presents to ED today after being diagnosed with a left distal ureter stone 2 days ago. She states yesterday she began running fevers of 102.0 and was told to return to the ED if this occurs. She feels like the stone pain is tolerable at home but does feel like it is moving down into her abdomen. She does report my kidney hurts more than it did a few days ago. She states she initially had some vomiting and she was diagnosed with a stone but has not had any since. Normal bowel movements. Patient is afebrile upon arrival but she is tachycardic at 139. Patient denies dysuria, cloudy, odorous urine. She has had some scant h ematuria and urinary urgency that she attributes to the stone. MD elicited complaint: back pain Pertinent past history: kidney stones Onset (ago): day(s) Timing: constant Severity: moderate Quality: sharp and aching Location: left flank Radiation: abdomen Exacerbating factors: none Relieving factors: none Associated symptoms: Reports abdominal pain, chills, fever(s), hematuria and urinary urgency; Deny change in bowel habits, dysuria, fatigue, nausea or vomiting Work related injury: No Review of Systems Const: Reports: fever(s) and chills; Denies: body aches, fatigue or malaise Card: Denies: chest pain Resp: Denies: dyspnea GI: Reports: abdominal pain; Denies: nausea, vomiting, diarrhea, constipation or change in bowel habits : Reports: flank pain, urinary urgency and hematuria; Denies: difficulty voiding, dysuria, vaginal bleeding, vaginal discharge or p elvic pain Musc: Reports: back pain (L flank); Denies: neck pain, extremity pain or joint pain Skin/Breast: Denies: rash Neuro: Denies: headache(s), numbness in extremities, weakness in extremities, sensory changes or dizziness [facility] ED PFSH: Surgical History History of tubal ligation Hx of cholecystectomy Status post colonoscopy (06/10/20) repeat in 5 Family History Unknown Cancer cervical cancer Other Diabetes Denies family history of Anesthesia complication Bleeding disorder Social History Smoking and tobacco status: current every day smoker Alcohol intake: never Household members: spouse Marital status: Current occupational status: unemployed History of recent travel: No Female Reproductive History: Date of last menstrual period: 09/05/21 Physical Exam Const: COMMON NORMALS: no acute distress, average body habitus, patient oriented x3, no limitations, healthy appearing, alert and well nourished GENERAL APPEARANCE: cooperative ORIENTATION/CONSCIOUSNESS: Yes awake, Yes oriented to person, Yes oriented to place and Yes oriented to time HENMT: COMMON NORMALS: normocephalic and atraumatic HEAD & SCALP: normal to inspection, normocephalic and atraumatic Resp: COMMON NORMALS: normal respiratory effort and clear to auscultation bilaterally AUSCULTATION: clear to auscultation bilaterally Cardio: COMMON NORMALS: regular rhythm RATE: tachycardic RHYTHM: regular rhythm GI: COMMON NORMALS: Normal to inspection, nondistended, normoactive bowel sounds present, Soft to palpation, No hepatosplenomegaly present and no masses INSPECTION: Yes normal to inspection PALPATION: Yes Soft to palpation, Yes Tenderness to palpation present (GI) (L abdomen), No Guarding due to palpation present (GI), No Rigid due to palpation and Yes No hepatosplenomegaly present : BLADDER/KIDNEY EXAM: Yes CVA tenderness on the left Back/Pelvis: COMMON NORMALS: thoracic and lumbar spine normal to inspection, no thoracic nor lumbar tenderness and thoraco-lumbar ROM normal GENERAL BACK: Yes CVA tenderness Extremity: COMMON NORMALS: normal to inspection GENERAL: Yes normal exam except as noted Neuro: SADE COMA SCALE: document GCS findings Sade coma scale eye opening: Spontaneous Sade coma scale verbal response: Orientated Sade coma scale motor response: Obey commands Sade coma scale total score: 15 COMMON NORMALS: patient oriented x3, moves all extremities, no focal motor deficits, no sensory deficits noted and gait normal SENSORIUM/ORIENTATION: Yes alert, Yes oriented to person, Yes oriented to place and Yes oriented to time Skin: COMMON NORMALS: no rashes or lesions noted GENERAL SKIN EXAM: no rashes or lesions noted Course Consultations: Consultation #1: Dr. Garza-[facility] urology-recommends transfer Consultation #2: Dr. Pearson-accepts direct admission Vital Signs: Vital signs: Vital Signs Temperature 98.5 F 06/14/22 20:22 Pulse Rate 89 06/14/22 21:30 Respiratory Rate 16 06/14/22 21:30 Blood Pressure 127/88 06/14/22 21:30 Pulse Oximetry 97 06/14/22 21:30 Oxygen Delivery Me thod 06/14/22 17:29 MDM - Back Pain/Injury Medical Decision Making Patient is a nice 32-year-old female here for re-evaluation after she was diagnosed with a left distal ureter stone 2 days ago. According to patient report yesterday she began running fevers as high as 102.0. Patient states she has had continued/worsening pain to her left flank. She arrives here tachycar dic with a heart rate of 139. She is afebrile. She does have a normal white count and a normal lactate. UA slightly concerning with infection given the 1+ leuks and 15-25 WBCs. Unfortunately we do not have urology on-call. Patient discussed with Dr. Doran who recommended urology consultation. I spoke to Dr. Garza, on-call urologist at [facility], who recommended transfer. I spoke to [facility] hospitalist Dr. Pearson who accepts patient as a direct admit. Labs 06/14/22 17:25 06/14/22 17:25 Radiology Impressions Renal Ultrasound 06/14/22 18:12 IMPRESSION: There is persistent mild left hydroureteronephrosis, however, the left ureteral jet is seen on exam. Laboratory Results WBC 5.3 10^3/uL (4.0-10.0) 06/14/22 17:25 RBC 4.58 10^6/uL (4.1-5.3) 06/14/22 17:25 Hgb 12.8 g/dL (11.5-15.3) 06/14/22 17:25 Hct 38.9 % (37.0-47.0) 06/14/22 17:25 MCV 84.9 fl (81-99) 06/14/22 17:25 MCH 27.9 pg (28.0-34.0) L 06/14/22 17:25 MCHC 32.9 g/dL (30.0-36.0) 06/14/22 17:25 RDW 13.6 % (12.1-15.1) 06/14/22 17:25 Plt Count 178 10^3/cmm (130-400) 06/14/22 17:25 MPV 10.6 fL (7.4-10.4) H 06/14/22 17:25 Neut % (Auto) 75.6 % 06/14/22 17:25 Lymph % (Auto) 14.0 % 06/14/22 17:25 [place] % (Auto) 9.0 % 06/14/22 17:25 Eos % (Auto) 0.6 % 06/14/22 17:25 Baso % (Auto) 0.4 % 06/14/22 17:25 Neut # (Auto) 4.04 10^3/uL (1.8-7.7) 06/14/22 17:25 Lymph # (Auto) 0.8 10^3/uL (0.8-4.8) 06/14/22 17:25 [place] # (Auto) 0.5 10^3/uL (0.2-0.9) 06/14/22 17:25 Eos # (Auto) 0.0 10^3/uL (0.0-0.8) 06/14/22 17:25 Baso # (Auto) 0.0 10^3/uL (0.0-0.1) 06/14/22 17:25 Nucleated RBC % (auto) 0 % 06/14/22 17:25 Nucleated RBCs # 0.0 /100WBC 06/14/22 17:25 Sodium 133 mmol/L (136-145) L 06/14/22 17:25 Potassium 3.1 mmol/L (3.5-5.1) L 06/14/22 17:25 Chloride 98 mmol/L (98-107) 06/14/22 17:25 Carbon Dioxide 22 mmol/L (22-29) 06/14/22 17:25 Anion Gap 16.1 (5-19) 06/14/22 17:25 BUN 6 mg/dL (6-20) 06/14/22 17:25 Creatinine 0.7 mg/dL (0.5-0.9) 06/14/22 17:25 GFR Calculation 96.4 mL/min (90-130) 06/14/22 17:25 Glucose 103 mg/dL (65-115) 06/14/22 17:25 Calculated Osmolality 274 mOsm/kg (285-295) L 06/14/22 17:25 Lactic Acid 1.0 mmol/L (0.5-2.2) 06/14/22 17:25 Calcium 8.9 mg/dL (8.5-10.5) 06/14/22 17:25 Total Bilirubin 0.6 mg/dL (0.15-1.2) 06/14/22 17:25 AST 24 U/L (0-32) 06/14/22 17:25 ALT 37 U/L (0-33) H 06/14/22 17:25 Alkaline Phosphatase 111 U/L (35-105) H 06/14/22 17:25 C-Reactive Protein 56.9 mg/L (0.0-4.9) H 06/14/22 17:25 Total Protein 7.6 g/dL (6.6-8.7) 06/14/22 17:25 Albumin 4.4 g/dL (3.5-5.2) 06/14/22 17:25 Globulin 3.2 g/dL (1.3-4.6) 06/14/22 17:25 Urine Color Yellow (Yellow) 06/14/22 17:15 Urine Appearance Clear (CLEAR) 06/14/22 17:15 Urine pH 5 (5-7) 06/14/22 17:15 Ur Specific [place] 1.010 (1.005-1.030) 06/14/22 17:15 Urine Protein Trace (Negative) 06/14/22 17:15 Urine Glucose (UA) Norm (Normal) 06/14/22 17:15 Urine Ketones 1+ (Negative) H 06/14/22 17:15 Urine Blood 3+ (Negative) H 06/14/22 17:15 Urine Nitrate Negative (Negative) 06/14/22 17:15 Urine Bilirubin Neg (Negative) 06/14/22 17:15 Urine Urobilinogen Neg mg/dL (Negative) 06/14/22 17:15 Ur Leukocyte Esterase 1+ (Negative) H 06/14/22 17:15 Urine RBC 10-15 /hpf (0-2) H 06/14/22 17:15 Urine WBC 15-25 /hpf (0-5) H 06/14/22 17:15 Ur Squamous Epith Cells None /hpf (0-5) 06/14/22 17:15 Amorphous Sediment Not Reportable 06/14/22 17:15 Urine Bacteria None /hpf (NONE) 06/14/22 17:15 Discharge Plan Discharge Patient Disposition: Xfer Short-Term Hosp Clinical Impression: Obstructive pyelonephritis Condition: Stable Referrals: Mike Meek MD [Primary Care Provider] - Coding Level of Care Code ED Director Integrated for Chg Fwd Exam Comprehensive Documented by User: Odilon Doran DO 06/14/22 22:09 HPI - Back Pain/Injury General: Chief Complaint: Abdominal Pain Stated Complaint: urinary pain/fever/chills Time Seen by Provider: 06/14/22 17:12 PFSH ED PFSH: Surgical History History of tubal ligation Hx of cholecystectomy Status post colonoscopy (06/10/20) repeat in 5 Family History Unknown Cancer cervical cancer Other Diabetes Denies family history of Anesthesia complication Bleeding disorder Social History Smoking and tobacco status: current every day smoker Alcohol intake: never Household members: spouse Marital status: Current occupational status: unemployed History of recent travel: No Physical Exam Neuro: SADE COMA SCALE: document GCS findings Ewen coma scale total score: 15 Course Consultations: Additional Consultation(s): Is one of the emergency department attendings on duty this case was discussed with me in real-time by the advanced nurse practitioner. I recommended ultrasound given her history of kidney stone and now findings today that suggest concomitant urinary tract infection. Ultrasound did show persistent hydronephrosis process consistent with her prior nephrolithiasis diagnosis. Because of her clinical presentation it is was felt that she needed to be in a location that had urology support which was not the case for this facility at this time. Patient was presented to [facility] who agreed to accept the patient in transfer. I agree with the plan of care as outlined in this chart. I did not personally see or evaluate this patient. Vital Signs: Vital signs: Vital Signs Temperature 98.5 F 06/14/22 20:22 Pulse Rate 89 06/14/22 21:30 Respiratory Rate 16 06/14/22 21:30 Blood Pressure 127/88 06/14/22 21:30 Pulse Oximetry 97 06/14/22 21:30 Oxygen Delivery Me thod 06/14/22 17:29 MDM - Back Pain/Injury Labs 06/14/22 17:25 06/14/22 17:25 Radiology Impressions Renal Ultrasound 06/14/22 18:12
[2022-06-14 17:29] VITALS: PULSE 113; O2SAT 99
[2022-06-14] MEDS: sodium chloride 0.9% 1,000 ML 999 ML IV (17:34)
[2022-06-14 17:42] LABS: Basophils % 0.4 %; Eosinophils % 0.6 %; Hematocrit 38.9 % (37.0-47.0); Hemoglobin 12.8 g/dL (11.5-15.3); Lymphocytes # 0.8 10^3/uL (0.8-4.8); Mean Corpuscular HGB Conc 32.9 g/dL (30.0-36.0); Mean Corpuscular Hemoglobin 27.9 pg (28.0-34.0); Mean Corpuscular Volume 84.9 fl (81-99); Mean Platelet Volume 10.6 fL (7.4-10.4); Monocytes # 0.5 10^3/uL (0.2-0.9); Neutrophils # 4.04 10^3/uL (1.8-7.7); Neutrophils % 75.6 %; Nucleated Red Blood Cells % 0 %; Platelet Count 178 10^3/cmm (130-400); Red Blood Count 4.58 10^6/uL (4.1-5.3); Red Cell Distribution Width 13.6 % (12.1-15.1); White Blood Count 5.3 10^3/uL (4.0-10.0)
[2022-06-14 17:57] LABS: Alanine Aminotransferase 37 U/L (0-33); Albumin Level 4.4 g/dL (3.5-5.2); Alkaline Phosphatase 111 U/L (35-105); Anion Gap 16.1 (5-19); Aspartate Amino Transferase 24 U/L (0-32); Blood Urea Nitrogen 6 mg/dL (6-20); C Reactive Protein 56.9 mg/L (0.0-4.9); Calcium 8.9 mg/dL (8.5-10.5); Carbon Dioxide 22 mmol/L (22-29); Chloride 98 mmol/L (98-107); Globulin 3.2 g/dL (1.3-4.6); Glomerular Filtration Rate 96.4 mL/min (90-130); Glucose 103 mg/dL (65-115); Osmolality Calculated 274 mOsm/kg (285-295); Potassium 3.1 mmol/L (3.5-5.1); Sodium 133 mmol/L (136-145); Total Bilirubin 0.6 mg/dL (0.15-1.2); Total Protein 7.6 g/dL (6.6-8.7)
[2022-06-14 18:02] LABS: Glucose Urine UA Norm (Normal); Protein Urine Trace (Negative); Urine Appearance Clear (CLEAR); Urine Color Yellow (Yellow); pH Urine 5 (5-7)
[2022-06-14 18:03] LABS: Add Urine Microscopic? YES; Bilirubin Urine Neg (Negative); Blood Urine 3+ (Negative); Ketones Urine 1+ (Negative); Leukocyte Esterase Urine 1+ (Negative); Nitrate Urine Negative (Negative); Urobilinogen Urine Neg (Negative); WBC Urine 15-25 /hpf (0-5)
[2022-06-14] MEDS: potassium chloride ER 20 mEq Tablet 40 MEQ PO (18:03)
[2022-06-14 18:04] LABS: Add Urine Culture? Yes
--- NOTE | 2022-06-14 18:12 | USR_ITS ---
PROCEDURE INFORMATION: Exam: US Retroperitoneal; Complete; Kidneys and Bladder Exam date and time: 06/14/2022 6:56 PM Age: 32 years old Clinical indication: Abdominal pain; Other: F/u CT 06/12/2022 = left ureteral stone. C/O continued left flank pain. History of prior nephrolithiasis. ; Additional info: L flank pain, fevers, UTI; Distal ureter stone TECHNIQUE: Imaging protocol: Real-time ultrasound of the retroperitoneum with image documentation. Complete exam focused on the kidneys and bladder. COMPARISON: US abdomen limited [id number] 06/10/2019 9:05 AM FINDINGS: Right kidney: Right kidney measures 11.1 cm in length. No hydronephrosis. Left kidney: Left kidney measures 10.8 cm in length. Mild hydroureteronephrosis. Urinary bladder: Bilateral ureteral jets are seen. US/US renal BI* [id number] IMPRESSION: There is persistent mild left hydroureteronephrosis, however, the left ureteral jet is seen on exam.
[2022-06-14 19:47] VITALS: BP 109/66; PULSE 88; RESP 16; O2SAT 98
[2022-06-14 20:22] VITALS: BP 123/75; PULSE 101; RESP 16; TEMP 36.9; O2SAT 99
[2022-06-14] MEDS: cefepime 1,000 MG in sodium chloride 0.9% (plus) 50 ML 100 MG IV (20:51)
[2022-06-14] MEDS: ketorolac 30 mg/mL INJ IVP (20:51)
[2022-06-14 21:30] VITALS: BP 127/88; PULSE 89; RESP 16; O2SAT 97
--- NOTE | 2022-06-14 21:40 | PC.NURSE ---
Report given to Sarah Snider LPN
== END 2022-06-14 22:21 | disposition short-term general hospital (02) ==
PROVIDERS: Emergency Provider Physician Assistant; PCP Family Medicine
DX: N11.1 Chronic obstructive pyelonephritis (principal)
CPT/HCPCS: 36415; 76770; 76857; 80053; 81001; 83605; 85025; 86140; 87040; 87077; 87086; 87186; 96365; 96375; 99285; J0692; J1885; J7030

== ENCOUNTER 2023-03-21 11:31 | Outpatient (CLI) | payer OTHER, SELFPAY ==
--- NOTE | 2023-03-21 11:36 | MR_ITS ---
WS: [id number] MRI HEAD WITHOUT CONTRAST TECHNIQUE: Sagittal T1, T2 axial, T2 axial FLAIR, axial and coronal T1 images, axial susceptibility w eighted imaging, axial diffusion weighted images, and coronal T2 images were obtained. CLINICAL INFORMATION: HEADACHE COMPARISON: None. FINDINGS: No evidence of restricted diffusion to suggest acute ischemia. Ventricular system and basal cisterns are patent. No suspicious intracranial signal normalities. Normal conroy-white differentiation. Normal posterior fo ssa. Normal vascular flow voids at the skull base. No extra-axial fluid collections. No mass or mass effect. Paranasal sinuses are well aerated. Mastoid air cells are well aerated. No hemosiderin on the susceptibly weighted images. Normal optic chiasm and pituitary infundibulum. IMPRESSION: 1. No evidence of restricted diffusion to suggest acute ischemia. 2. No suspicious intracranial signal normalities. Normal conroy-white differentiation. 3. No hemosiderin on the susceptibly weighted images. 4. Paranasal sinuses and mastoid air cells are well aerated. 5. No other suspicious findings.
== END 2023-03-21 11:32 | disposition home or self-care (01) ==
LOC: RAD 11:31
PROVIDERS: PCP Family Medicine; Visit Provider Nurse Practitioner Family
DX: R51.9 Headache, unspecified (principal)
CPT/HCPCS: 70551